=== PATIENT | male | born 1995 | race Caucasian/White ===

== ENCOUNTER 2018-07-12 08:39 | Emergency (ER) | payer OTHER ==
[~2018-07-12] VITALS: Ht 177.8 cm; Wt 158.8 kg
--- OUTSIDE RECORDS SUMMARY | ~2018-07-12 | XMS | Clinical Summary ---
Demographics + + + | Address | [address] [place] [address] | | | [place] [address] | + + + | Home Phone | | + + + | Preferred Language | Unknown | + + + | Marital Status | Single | + + + | Restorationist Affiliation | NON | + + + [...] | + + + + + | MAXI CABRERA | [place] | [place] | | + + + + + Care Team Providers + +------+ + | Care Supervisor Welding Equipment Repairer Name | Role | Phone | + +------+ + PP | Unavailable | + +------+ + Source Comments [facility] is fully live on both [facility] and [facility] InPatient.[facility] Allergies + + + + + + | Active Allergy | Reactions | Severity | Noted | Comments | | | | | Date | | + + + + + + | Sulfa (Sulfonamide | | | 06/11/19 | | | Antibiotics) | | | 04 | | + + + + + + Current Medications Not on file Active Problems Not on file Social History + +-------+ +--------+------+ | Tobacco [...] on file | | + + + Plan of Treatment + + + + + | Health Maintenance | Due Date | Last Done | Comments | + + + + + | Influenza (Flu) | | | | | vaccination (#1) | 8 | | | + + + + + Results Not on filefrom Last 3 Months"
--- OUTSIDE RECORDS SUMMARY | ~2018-07-12 | XMS | Clinical Summary ---
Demographics + + + | Address | [address] [place] [address] | | | [place] [address] | + + + | Home Phone | | + + + | Preferred Language | Unknown | + + + | Marital Status | Single | + + + | Mormon Affiliation | NON | + + + [...] Team Providers + +------+ + | Care Spool Worker Name | Role | Phone | + +------+ + PP | Unavailable | + +------+ + Source Comments [facility]IGAIL is fully live on both [facility] Ambulatory and [facility] InPatient.[facility] Allergies + + + + [...]
[~2018-07-12 08:39] MED LIST: FLOVENT DISKU250 MCG; KEFLEX500 MG PO; MEDROL4 M1 PO; SINGULAIR10 MG PO; VENTOLIN HFA18 GM IH
[2018-07-12] MEDS ORDERED: IPRAT-ALBUT 0.5-3 ML INH (09:30)
[2018-07-12] MEDS ORDERED: PREDNISONE50 MG PO (09:30)
[2018-07-12] MEDS ORDERED: ZYRTEC10 MG PO (09:30)
== END 2018-07-12 10:07 | disposition home or self-care (01) ==
LOC: ED 08:39
DX: J45.901 Unspecified asthma with (acute) exacerbation (principal); Z88.2 Allergy status to sulfonamides; Z88.8 Allergy status to other drugs, medicaments and biological substances; Z79.899 Other long term (current) drug therapy
CPT/HCPCS: 71045; 94640; 99284-25; J7512

== ENCOUNTER 2018-08-05 08:47 | Day surgery (SDC) | payer OTHER ==
[~2018-08-05] VITALS: Ht 177.8 cm; Wt 151.1 kg
[~2018-08-05 08:47] MED LIST changes: +IPRAT-ALBUT 0.5-3 ML INH; +PREDNISONE50 MG PO; +ZYRTEC10 MG PO
[2018-08-05] MEDS ORDERED: METOPROLOL SUCC25 MG PO (09:42)
--- NOTE | 2018-08-05 10:37 | NUR ---
states he freaks out with needles thats why hes here. versed given po. rails up x2. instructed to not get oob with out assist. states ok.
--- NOTE | 2018-08-05 15:01 | NUR ---
08/05/18 1500 Sheets,Seema 1447 PT ARRIVED TO PACU WITH COSTUMED CHARACTER DOING JAW THRUST TO MAINTAIN AIRWAY. SUCTION USED, BRIGHT RED BLOOD SUCTIONED FROM MOUTH. PT CHOCKING ON ORAL AIRWAY, COSTUMED CHARACTER REMOVED ORAL AIRWAY.
--- NOTE | 2018-08-05 17:07 | NUR ---
PT ARRIVED TO MED SURG ROOM 120 FOR CONTINUED MONITORING POST MED ADMINISTRATION, PER AVELINO PRADO PT HAS ALREADY BEEN EDUCATED ON DISCHARGE AND ONLY REQUIRES MONITORING 2 HOURS POST FLUMAZENIL ADMINISTRATION DUE TO DROWSINESS AFTER PO VERSED. LAST DOSE WAS GIVEN AT 1626. PT ALERT AND ORIENTED. VSS. PT DENIES NEEDS/CONCERNS. CALL LIGHT AND H20 WITH NO STRAW IN REACH. PT NOW WATCHING TV.
--- NOTE | 2018-08-05 17:34 | EKG ---
[facility] [address] [facility] [place], [place] [address] Signed Normal sinus rhythm Normal ECG No previous ECGs available Confirmed by ADRIANA BAL DO ([id number]) on 08/05/2018 5:33:54 PM Electronically Signed By: ADRIANA BAL DO 08/05/18 1734 PATIENT NAME: JAMMIE CABRERA Electrocardiogram DATE OF : [birth year] PHYSICIAN: ADRIANA BAL DO REPORT #: [id number] REPORT IS CONFIDENTIAL AND NOT TO BE RELEASED WITHOUT AUTHORIZATION
--- NOTE | 2018-08-05 18:04 | NUR ---
PATIENT RESTING IN BED. VITAL SIGNS DONE. LOW DYASTOLIC BLOOD PRESSURE. RN NOTIFIED. CALL LIGHT WITHIN REACH. NO OTHER NEEDS AT THIS TIME
--- NOTE | 2018-08-05 18:05 | NUR ---
PT RESTING ON LEFT LATERAL SIDE IN BED, PT ALERT AND ORIENTED TO VOICE. PT DENIES PAIN, NAUSEA, OR ANY OTHER SX'S O2 SAT MAINTAINING IN MID TO HIGH 90'S ON RA. CALL LIGHT AND H20 IN REACH.
--- NOTE | 2018-08-05 19:30 | NUR ---
SHIFT REPORT RECIEVED BY SHIKHA IZAGUIRRE AT BEDSIDE. PT AWAKE AND RESTING IN BED, ON RA, RR WNL. NO DISTRESS NOTED, PT APPEARS COMFORTABLE. MOTHER IN ROOM. PER DAYSHIFT AVELINO IZAGUIRRE AND AIR CREW OFFICER REPACK ROOM WORKERAVELINO SOLIS, PT CAN LEAVE AFTER 2030 TO DISCHARGE HOME. EMPTY JELLO CONTAINER AT BEDSIDE, PT DENIES NAUSEA. PT ALSO DENIES PAIN, RECENTLY VOIDED 400 MLS. PT DENIES NEEDS, CALL LIGHT IN REACH.
--- NOTE | 2018-08-05 20:10 | NUR ---
PUDDING PROVIDED PER PT REQUEST. PT DENIES PAIN AND NAUSEA. CALL LIGHT IN REACH.
--- NOTE | 2018-08-05 20:35 | NUR ---
VS COLLECTED AND DOCUMENTED BY GHADA CANAS. VSS, HR 103. PT DENIES CHEST PAIN OR SOB. PT STATES, "I HAVE TACHYCARDIA AND TAKE METOPROLOL DAILY, BUT I DIDN'T TAKE IT TODAY BECAUSE OF SURGERY" I FEEL FINE RIGHT NOW". PT TYPICALLY TAKES 25 MG PO METOPROLOL EXTENDED RELEASE DAILY. PT AND MOTHER ASK IF PT SHOULD TAKE SCHEDULED METOPROLOL AT HOME AFTER DISCHARGE. DISCUSSED PT'S QUESTION WITH LAUNCHING PAD MECHANIC WILL AND KEELER POLYGRAPH OPERATOR KETURAH. PT HR HAS BEEN IN 90'S-LOW 100'S SINCE SURGERY, BP WNL. PER EMAR, IV METOPROLOL WAS DISPENSED IN THE OR FOR TAACHY HR. DISCHARGED HR 103, BP 126/61, MAP 75. DISCUSSED ABOVE INFORMATION WITH KEELER POLYGRAPH OPERATOR AND LAUNCHING PAD MECHANIC. PER KEELER POLYGRAPH OPERATOR, OKAY FOR PT TO TAKE PO METOPROLOL AFTER ARRIVING HOME. PT AND MOTHER DENIES ADDITIONAL QUESTIONS OR CONCERNS. PT HAS MET ALL REQUIREMENTS FOR DISCHARGE. MOTHER PICKED UP PRESCRITIONS EARLIER THIS AFTERNOON. IV CATHETER REMOVED BY GHADA CANAS, TIP INTACT PER OBGYN HOSPITALIST PHYSICIAN. PT DENIES NAUSEA AND TOLERATING FOOD. DENIES PAIN. AMBULATES INDEPENDENTLY AND HAS VOIDED. DISCHARGE INSTRUCTIONS ALREADY GIVEN TO PT'S MOTHER DURING DAYSHIFT.
--- NOTE | 2018-08-05 20:55 | NUR ---
PT TRANSPORTED VIA WHEELCHAIR TO [facility]ONT [facility]ITAL ENTRANCE BY THIS RN. PT AMBULATED INTO PERSONAL VEHICLE DRIVEN BY PT'S MOTHER AND DISCHARGEEDD TO HOME. ALL QUESTIONS ANSWERED. PT AND PT'S MOTHER DENIES ADDITIONAL QUESTIONS OR CONCERNS.
== END 2018-08-05 21:00 | disposition home or self-care (01) ==
LOC: OPS 08:47 → DS 08:52 → OPS 11:30 → MS 17:10 → OPS 21:00
PROVIDERS: Dentist
PROC: 0CQXXZ1 Repair of Lower Tooth, Multiple, External Approach (ICD-10-PCS; 2018-08-05)
PROC: 0CDXXZ0 Extraction of Lower Tooth, Single, External Approach (ICD-10-PCS; principal; 2018-08-05 11:30)
DX: K00.1 Supernumerary teeth (principal); K02.9 Dental caries, unspecified; I10 Essential (primary) hypertension; G89.29 Other chronic pain; K21.9 Gastro-esophageal reflux disease without esophagitis; J45.909 Unspecified asthma, uncomplicated; Z88.2 Allergy status to sulfonamides; Z88.8 Allergy status to other drugs, medicaments and biological substances; Z79.899 Other long term (current) drug therapy
CPT/HCPCS: 93005; 93010; J0330; J1100; J1885; J2405; J2704; J2765; J7120

== ENCOUNTER 2018-09-10 15:44 | Emergency (ER) | payer OTHER ==
[~2018-09-10] VITALS: Ht 177.8 cm; Wt 151.1 kg
[~2018-09-10 15:44] MED LIST changes: +METOPROLOL SUCC25 MG PO
== END 2018-09-10 16:30 | disposition home or self-care (01) ==
LOC: ED 15:44
DX: R07.9 Chest pain, unspecified (principal); Z88.2 Allergy status to sulfonamides; Z88.8 Allergy status to other drugs, medicaments and biological substances; J45.909 Unspecified asthma, uncomplicated; Z79.899 Other long term (current) drug therapy
CPT/HCPCS: 99284-25

== ENCOUNTER 2019-03-17 16:24 | Emergency (ER) | payer OTHER ==
[~2019-03-17] VITALS: Ht 177.8 cm; Wt 158.8 kg
--- OUTSIDE RECORDS SUMMARY | ~2019-03-17 | XMS | Encounter Summary ---
Demographics + + + | Address | [address] [place] [address] | | | [place] [address] | + + + | Home Phone | | + + + | Preferred Language | Unknown | + + + | Marital Status | Single | + + + | Christian Affiliation | NON | + + + | Race | White | + + + | Ethnic Group | Not or | + + + Author + + + | Author | [facility] | + + + | Organization | [facility] | + + + | Address | Unknown | + + + | Phone | Unavailable | + + + Support + + + + + | Name | Relationship | Address | Phone | + + + + + | Eunice Cabrera | JAIME | [place] | | + + + + + Care Team Providers + +------+ + | Care Social Worker Psychiatric Name | Role | Phone | + +------+ + PCP | Unavailable | + +------+ + Encounter Details +--------+ + + + + | Date | Type | Department | Care Team | Description | +--------+ + + + + | 06/11/ | Documentati | Anesthesiology | Unknown . | | | 2003 | on | [address] | | | | | | [place], | | | | | | [place] [address] | | | +--------+ + + + + Social History + +-------+ +--------+------+ | Tobacco Use | Types | Packs/Day | Years | Date | | | | | Used | | + +-------+ +--------+------+ | Never Assessed | | | | | + +-------+ +--------+------+ + + + | Sex Assigned at | Date Recorded | | | | + + + | Not on file | | + + + + + + + | Job Start Date | Occupation | Industry | + + + + | Not on file | Not on file | Not on file | + + + + + + + + | Travel History | Travel Start | Travel End | + + + + + + | No recent travel history available. | + + documented as of this encounter Plan of Treatment Not on filedocumented as of this encounter Procedures + +--------+ + + + | Procedure Name | Priori | Date/Time | Associated Diagnosis | Comments | | | ty | | | | + +--------+ + + + | ANESTHESIA/SEDATION | | 06/12/2003 | | Results for this | | | | 10:33 AM | | procedure are in the | | | | PST | | results section. | + +--------+ + + + documented in this encounter Results ANESTHESIA/SEDATION (06/12/2003 10:33 AM PST) + + + | Narrative | Performed At | + + + | Ordered by an unspecified provider. | | + + + + + | Transcriptions | + + | 06/12/2003 10:33 AM [facility] Anesthesia PostOp Report | | | | Patient: LAZARUS CABRERA Med Rec: [id number] Sex M Bdate: 1995 | | Date/Time Data | | Entered Into [facility] | | Anesth PostOp | | Surgery Date [id number] 06/12/03 10:33 | | Anesthesiologist MITCHEL DAVIS 06/12/03 10:33 | | | + + documented in this encounter Visit Diagnoses Not on filedocumented in this encounter"
--- OUTSIDE RECORDS SUMMARY | ~2019-03-17 | XMS | Encounter Summary ---
Demographics + + + | Address | [address] | | | [place] [address] | + + + | Home Phone | | + + + | Preferred Language | Unknown | + + + | Marital Status | Single | + + + | Alevism Affiliation | NON | + + + | Race | White | + + + | Ethnic Group | Not or | + + + Author + + + | Organization | Unknown | + + + | Address | Unknown | + + + | Phone | Unavailable | + + + Support + + + + + | Name | Relationship | Address | Phone | + + + + + | Eunice Flores | JAIME | [place] | | + + + + + Care Team Providers + +------+ + | Care Social Media Specialist Name | Role | Phone | + +------+ + PCP | Unavailable | + +------+ + Encounter Details +--------+ + + + + | Date | Type | Department | Care Team | Description | +--------+ + + + + | 06/10/ | Results | | [facility], | | | 2003 | Only | | [address] | | | | | | [address] | | | | | | [place] [address] | | | | | | [phone] | | +--------+ + + + + [...] | + +--------+ + + + | MRI SPINE CERVICAL | Routin | 2003 | | Results for this | | WO CONTRAST | e | 12:06 PM | | procedure are in the | | | | PST | | results section. | + +--------+ + + + | BASIC METABOLIC SET | Urgent | 2003 | | Results for this | | (NA, K, CL, TCO2, | | 4:00 AM | | procedure are in the | | BUN, CR, GLU, CA) | | PST | | results section. | + +--------+ + + + | CBC ONLY | Urgent | 2003 | | Results for this | | | | 4:00 AM | | procedure are in the | | | | PST | | results section. | + +--------+ + + + documented in this encounter Results MRI SPINE CERVICAL WO CONTRAST (2003 12:06 PM PST) + + + + + + | Component | Value | Ref Range | Performed | Pathologist | | | | | At | Signature | + + + + + + | MR CERVICAL | Radiologist 1: MISTY, | | | | | SPINE WO | AIDEE BARBOZA M.D.MRI OF THE | | | | | CONTRAST | CERVICAL, THORACIC, AND | | | | | | LUMBAR SPINE: | | | | | | 2003 Dictated | | | | | | 2003 COMPARISON: | | | | | | CT of the cervical | | | | | | spine 06/10/2003. | | | | | | CLINICAL HISTORY: | | | | | | C2-C3 fusion and | | | | | | lumbar spinous process | | | | | | of T1-T2. Rule out | | | | | | diastematomyelia. | | | | | | TECHNIQUE: MRI of the | | | | | | cervical, thoracic, and | | | | | | lumbar spine | | | | | | wasperformed with the | | | | | | following sequences:1. | | | | | | Sagittal and axial | | | | | | T1.2. Sagittal and | | | | | | axial T2. Sagittal | | | | | | STIR. FINDINGS: The | | | | | | spinal cord is normal in | | | | | | size and signals. | | | | | | There is nomass or | | | | | | syrinx. The cerebellar | | | | | | tonsils rest in normal | | | | | | position abovethe | | | | | | foramen magnum. The | | | | | | conus terminates | | | | | | normally at L1-L2. | | | | | | There isno lipoma or | | | | | | tethered cord. The | | | | | | vertebral bodies are | | | | | | normally aligned and | | | | | | maintain normal | | | | | | heightand marrow signal. | | | | | | Please refer to the | | | | | | CT scan for better | | | | | | descriptionof the C2-C3 | | | | | | and cervical-thoracic | | | | | | posterior vertebral body | | | | | | fusion. There is no | | | | | | central canal or neural | | | | | | foraminal stenosis. | | | | | | IMPRESSION: 1. Normal | | | | | | spinal cord. No | | | | | | evidence of | | | | | | diastematomyelia, mass, | | | | | | orsyrinx. 2. Please | | | | | | refer the CT scan for | | | | | | C2-C3 and | | | | | | cervicothoracic | | | | | | junctionposterior | | | | | | fusion. The vertebral | | | | | | bodies are normally | | | | | | aligned. END OF | | | | | | IMPRESSION: | | | | + + + + + + + + | Specimen | + + | | + + + +---------+ + + | Performing | Address | City/State/Zipcode | Phone Number | | Organization | | | | + +---------+ + + | [facility] | | | | | RADIOLOGY | | | | + +---------+ + + CBC ONLY WITH PLATELET (2003 4:00 AM PST) + + + + + + | Component | Value | Ref Range | Performed | Pathologist | | | | | At | Signature | + + + + + + | WHITE CELL | 14.1 (H) | 4.8 - 11.8 K/cu | [facility] | | | COUNT | | mm | DEPARTMENT | | | | | | OF | | | | | | PATHOLOGY | | + + + + + + | RED CELL | 4.18 | 3.70 - 4.90 | [facility] | | | COUNT | | M/cu mm | DEPARTMENT | | | | | | OF | | | | | | PATHOLOGY | | + + + + + + | HEMOGLOBIN | 11.7 | 10.7 - 13.7 | [facility] | | | | | g/dL | DEPARTMENT | | | | | | OF | | | | | | PATHOLOGY | | + + + + + + | HEMATOCRIT | 34.6 | 31.6 - 40.0 % | [facility] | | | | | | DEPARTMENT | | | | | | OF | | | | | | PATHOLOGY | | + + + + + + | MCV | 82.7 | 80.0 - 96.0 fL | [facility] | | | | | | DEPARTMENT | | | | | | OF | | | | | | PATHOLOGY | | + + + + + + | MCH | 27.9 (L) | 28.5 - 32.3 pg | [facility] | | | | | | DEPARTMENT | | | | | | OF | | | | | | PATHOLOGY | | + + + + + + | MCHC | 33.7 | 33.4 - 35.5 | [facility] | | | | | g/dL | DEPARTMENT | | | | | | OF | | | | | | PATHOLOGY | | + + + + + + | RDW | 13.2 | 11.5 - 15.0 % | [facility] | | | | | | DEPARTMENT | | | | | | OF | | | | | | PATHOLOGY | | + + + + + + | PLATELET | 256 | 150 - 420 K/cu | [facility] | | | COUNT | | mm | DEPARTMENT | | | | | | OF | | | | | | PATHOLOGY | | + + + + + + | MPV | 9.3 | 7.4 - 10.4 fL | [facility] | | | | | | DEPARTMENT | | | | | | OF | | | | | | PATHOLOGY | | + + + + + + + + | Specimen | + + | | + + + + + + + | Performing | Address | City/State/Zipcode | Phone Number | | Organization | | | | + + + + + | [facility] | [address] | [place] [address] | | | PATHOLOGY | [address] | | | + + + + + | [facility] | [address] | [place] [address] | | | PATHOLOGY | [address] | | | + + + + + BASIC METABOLIC SET (2003 4:00 AM PST) + +---------+ + + + | Component | Value | Ref Range | Performed | Pathologist | | | | | At | Signature | + +---------+ + + + | GLUCOSE, | 98 | 65 - 110 mg/dL | [facility] | | | PLASMA | | | DEPARTMENT | | | (LAB) | | | OF | | | | | | PATHOLOGY | | + +---------+ + + + | BUN, PLASMA | 9 | 6 - 20 mg/dL | [facility] | | | (LAB) | | | DEPARTMENT | | | | | | OF | | | | | | PATHOLOGY | | + +---------+ + + + | CREATININE | 0.4 | 0.3 - 0.9 mg/dL | [facility] | | | PLASMA | | | DEPARTMENT | | | (LAB) | | | OF | | | | | | PATHOLOGY | | + +---------+ + + + | SODIUM, | 136 | 136 - 145 | [facility] | | | PLASMA | | mmol/L | DEPARTMENT | | | (LAB) | | | OF | | | | | | PATHOLOGY | | + +---------+ + + + | POTASSIUM, | 3.4 (L) | 3.5 - 5.1 | [facility] | | | PLASMA | | mmol/L | DEPARTMENT | | | (LAB) | | | OF | | | | | | PATHOLOGY | | + +---------+ + + + | CHLORIDE, | 106 | 98 - 107 mmol/L | [facility] | | | PLASMA | | | DEPARTMENT | | | (LAB) | | | OF | | | | | | PATHOLOGY | | + +---------+ + + + | TOTAL CO2, | 22 (L) | 23 - 29 mmol/L | [facility] | | | PLASMA | | | DEPARTMENT | | | (LAB) | | | OF | | | | | | PATHOLOGY | | + +---------+ + + + | CALCIUM, | 9.4 | 8.5 - 10.5 | [facility] | | | PLASMA | | mg/dL | DEPARTMENT | | | (LAB) | | | OF | | | | | | PATHOLOGY | | + +---------+ + + + + + | Specimen | + + | | + + + + + + + | Performing | Address | City/State/Zipcode | Phone Number | | Organization | | | | + + + + + | [facility] | [address] | [place] [address] | | | PATHOLOGY | [address] | | | + + + + + | [facility] | [address] | [place] [address] | | | PATHOLOGY | [address] | | | + + + + + documented in this encounter Visit Diagnoses Not on filedocumented in this encounter"
--- OUTSIDE RECORDS SUMMARY | ~2019-03-17 | XMS | Encounter Summary ---
Demographics + + + | Address | [address] | | | [place] [address] | + + + | Home Phone | | + + + | Preferred Language | Unknown | + + + | Marital Status | Single | + + + | Orthodoxy Affiliation | NON | + + + [...] Team Providers + +------+ + | Care Brake Tester Name | Role | Phone | + +------+ + PCP | Unavailable | + +------+ + Encounter Details +--------+ + + + + | Date | Type | Department | Care Team | Description | +--------+ + + + + | 07/26/ | Office | | Note, Outpatient | Progress Note | | 2004 | Visit-Trans | | Clinic | | | | cribed | | | | +--------+ + + + [...] + + documented as of this encounter Progress Notes Interface, Piano Case And Bench Assembler In - 10/18/2004 8:49 PM PDTClinic Date: 07/27/2003 Clinic: Pediatric Neurosurgery Subjective: Lazarus Flores is a 8-year-old boy who fell out of a tree on June 10, 2003, and suffered a right parietal fracture. He was observed here in the [facility] where he had an uncomplicated course. He was discharged home with followup in 2 weeks. Since discharge, Lazarus has been doing quite well. He is back to his usual level of activities. He has had no headache, nausea, vomiting, irritability, or any changes in his neurologic status. His family has no concerns today. Physical Examination General: Lazarus is bright and alert. HEENT: He has a palpable depression in the right parietal area. It is not cosmetically noticeable. Neurologic: His neurological exam remains within normal limits. Lazarus is now free to return to gym class and any other activity except contact sports for 3 months. I reviewed this with his family. He requires no further neurosurgical followup. Charmaine Hernandez M.D. ABENA / COC[facility] [id number] / [id number] / [id number] / Tdocumented in this encounter Plan of Treatment Not on filedocumented as of this encounter Visit Diagnoses Not on filedocumented in this encounter"
--- OUTSIDE RECORDS SUMMARY | ~2019-03-17 | XMS | Encounter Summary ---
Demographics + + + | Address | [address] | | | [place] [address] | + + + | Home Phone | | + + + | Preferred Language | Unknown | + + + | Marital Status | Single | + + + | Uatsdin Affiliation | NON | + + + [...] Team Providers + +------+ + | Care Apigee Developer Name | Role | Phone | + +------+ + PCP | Unavailable | + +------+ + Encounter Details +--------+ + + + + | Date | Type | Department | Care Team | Description | +--------+ + + + + | // | Results | | Other, Faculty | | | 2004 | Only | | [phone] | | +--------+ + + + + [...] | + +--------+ + + + | BLOOD BANK PRODUCT | Routin | 06/10/2003 | | Results for this | | | e | 9:14 PM | | procedure are in the | | | | PST | | results section. | + +--------+ + + + | BLOOD BANK PRODUCT | Routin | 06/10/2003 | | Results for this | | | e | 9:14 PM | | procedure are in the | | | | PST | | results section. | + +--------+ + + + | TYPE AND CROSSMATCH | Urgent | 06/10/2003 | | Results for this | | | | 9:14 PM | | procedure are in the | | | | PST | | results section. | + +--------+ + + + | BASIC METABOLIC SET | Urgent | 06/10/2003 | | Results for this | | (NA, K, CL, TCO2, | | 9:11 PM | | procedure are in the | | BUN, CR, GLU, CA) | | PST | | results section. | + +--------+ + + + | CBC ONLY | Urgent | 06/10/2003 | | Results for this | | | | 9:11 PM | | procedure are in the | | | | PST | | results section. | + +--------+ + + + | COAGULOPATHY PANEL | Urgent | 06/10/2003 | | Results for this | | (INR,APTT,FIBRINOGEN | | 9:11 PM | | procedure are in the | | ) | | PST | | results section. | + +--------+ + + + | PHOSPHORUS, PLASMA | Urgent | 06/10/2003 | | Results for this | | | | 9:11 PM | | procedure are in the | | | | PST | | results section. | + +--------+ + + + | MAGNESIUM, PLASMA | Urgent | 06/10/2003 | | Results for this | | | | 9:11 PM | | procedure are in the | | | | PST | | results section. | + +--------+ + + + documented in this encounter Results BLOOD BANK PRODUCT (06/10/2003 9:14 PM PST) + + + + + + | Component | Value | Ref Range | Performed | Pathologist | | | | | At | Signature | + + + + + + | PRODUCT | PACKED CELLS | | [facility] | | | DESCRIPTION | | | DEPARTMENT | | | | | | OF | | | | | | PATHOLOGY | | + + + + + + | PRODUCT | [id number] | | [facility] | | | UNIT # | | | DEPARTMENT | | | | | | OF | | | | | | PATHOLOGY | | + + + + + + | UNIT ABO | A | | [facility] | | | | | | DEPARTMENT | | | | | | OF | | | | | | PATHOLOGY | | + + + + + + | UNIT RH | POS | | [facility] | | | | | | DEPARTMENT | | | | | | OF | | | | | | PATHOLOGY | | + + + + + + | STATUS OF | Released | | [facility] | | | UNIT | | | DEPARTMENT | | | | | | OF | | | | | | PATHOLOGY | | + + + + + + + + | Specimen | + + | | + + + + + | Narrative | Performed At | + + + | Ordered by UNKNOWN DOCTOR | [facility] | | | DEPARTMENT OF | | | PATHOLOGY | + + + + + + + + | Performing | Address | City/State/Zipcode | Phone Number | | Organization | | | | + + + + + | [facility] DEPARTMENT [facility] | [address] | [place] [address] | | | PATHOLOGY | [address] | | | + + + + + | [facility] DEPARTMENT [facility] | [address] | [place] [address] | | | PATHOLOGY | [address] | | | + + + + + BLOOD BANK PRODUCT (06/10/2003 9:14 PM PST) + + + + + + | Component | Value | Ref Range | Performed | Pathologist | | | | | At | Signature | + + + + + + | PRODUCT | PACKED CELLS | | [facility] | | | DESCRIPTION | | | DEPARTMENT | | | | | | OF | | | | | | PATHOLOGY | | + + + + + + | PRODUCT | [id number] | | [facility] | | | UNIT # | | | DEPARTMENT | | | | | | OF | | | | | | PATHOLOGY | | + + + + + + | UNIT ABO | A | | [facility] | | | | | | DEPARTMENT | | | | | | OF | | | | | | PATHOLOGY | | + + + + + + | UNIT RH | POS | | [facility] | | | | | | DEPARTMENT | | | | | | OF | | | | | | PATHOLOGY | | + + + + + + | STATUS OF | Released | | [facility] | | | UNIT | | | DEPARTMENT | | | | | | OF | | | | | | PATHOLOGY | | + + + + + + + + | Specimen | + + | | + + + + + | Narrative | Performed At | + + + | Ordered by UNKNOWN DOCTOR | [facility] | | | DEPARTMENT OF | | | PATHOLOGY | + + + + + + + + | Performing | Address | City/State/Zipcode | Phone Number | | Organization | | | | + + + + + | [facility] | [address] | [place] [address] | | | PATHOLOGY | [address] | | | + + + + + | [facility] | [address] [place] [address] [address] | [place] [address] | | | PATHOLOGY | [address] | | | + + + + + ANTIBODY SCREEN & CROSSMATCH (06/10/2003 9:14 PM PST) + +-------+ + + + | Component | Value | Ref Range | Performed | Pathologist | | | | | At | Signature | + +-------+ + + + | ABO GROUP | A | | [facility] | | | | | | DEPARTMENT | | | | | | OF | | | | | | PATHOLOGY | | + +-------+ + + + | RH TYPE | POS | | [facility] | | | | | | DEPARTMENT | | | | | | OF | | | | | | PATHOLOGY | | + +-------+ + + + | ANTIBODY | NEG | | [facility] | | | SCREEN | | | DEPARTMENT | | | | | | OF | | | | | | PATHOLOGY | | + +-------+ + + + + + | Specimen | + + | | + + + + + | Narrative | Performed At | + + + | Ordered by UNKNOWN DOCTOR LETTY GARCIA 06/13/03 @ 0700 | [facility] | | | DEPARTMENT OF | | | PATHOLOGY | + + + + + + + + | Performing | Address | City/State/Zipcode | Phone Number | | Organization | | | | + + + + + | [facility] | [address] | [place] [address] | | | PATHOLOGY | [address] | | | + + + + + | [facility] DEPARTMENT OF | [address] | [place] [address] | | | PATHOLOGY | [address] | | | + + + + + CBC ONLY WITH PLATELET (06/10/2003 9:11 PM PST) + + + + + + | Component | Value | Ref Range | Performed | Pathologist | | | | | At | Signature | + + + + + + | WHITE CELL | 18.0 (H) | 4.8 - 11.8 K/cu | [facility] | | | COUNT | | mm | DEPARTMENT | | | | | | OF | | | | | | PATHOLOGY | | + + + + + + | RED CELL | 4.60 | 3.70 - 4.90 | [facility] | | | COUNT | | M/cu mm | DEPARTMENT | | | | | | OF | | | | | | PATHOLOGY | | + + + + + + | HEMOGLOBIN | 13.2 | 10.7 - 13.7 | [facility] | | | | | g/dL | DEPARTMENT | | | | | | OF | | | | | | PATHOLOGY | | + + + + + + | HEMATOCRIT | 37.4 | 31.6 - 40.0 % | [facility] | | | | | | DEPARTMENT | | | | | | OF | | | | | | PATHOLOGY | | + + + + + + | MCV | 81.2 | 80.0 - 96.0 fL | [facility] | | | | | | DEPARTMENT | | | | | | OF | | | | | | PATHOLOGY | | + + + + + + | MCH | 28.6 | 28.5 - 32.3 pg | [facility] | | | | | | DEPARTMENT | | | | | | OF | | | | | | PATHOLOGY | | + + + + + + | MCHC | 35.2 | 33.4 - 35.5 | [facility] | | | | | g/dL | DEPARTMENT | | | | | | OF | | | | | | PATHOLOGY | | + + + + + + | RDW | 13.7 | 11.5 - 15.0 % | [facility] | | | | | | DEPARTMENT | | | | | | OF | | | | | | PATHOLOGY | | + + + + + + | PLATELET | 281 | 150 - 420 K/cu | [facility] | | | COUNT | | mm | DEPARTMENT | | | | | | OF | | | | | | PATHOLOGY | | + + + + + + | MPV | 8.8 | 7.4 - 10.4 fL | [facility] | | | | | | DEPARTMENT | | | | | | OF | | | | | | PATHOLOGY | | + + + + + + + + | Specimen | + + | | + + + + + | Narrative | Performed At | + + + | Ordered by UNKNOWN DOCTOR | [facility] | | | DEPARTMENT OF | | | PATHOLOGY | + + + + + + + + | Performing | Address | City/State/Zipcode | Phone Number | | Organization | | | | + + + + + | [facility] DEPARTMENT OF | [address] | [place] [address] | | | PATHOLOGY | [address] | | | + + + + + | [facility] DEPARTMENT OF | [address] | [place] [address] | | | PATHOLOGY | [address] | | | + + + + + COAGULOPATHY PANEL (06/10/2003 9:11 PM PST) + + + + + + | Component | Value | Ref Range | Performed | Pathologist | | | | | At | Signature | + + + + + + | INR | 0.98Comment: | 0.90 - 1.20 INR | [facility] | | | | PT INR Therapeutic | | DEPARTMENT | | | | ranges for full | | OF | | | | anticoagulation: | | PATHOLOGY | | | | INR for | | | | | | Venous Thromboembolism | | | | | | | | | | | | (2.0-3.0)INR | | | | | | INR for most | | | | | | patients with mech. | | | | | | valves (2.5-3.5)INR | | | | + + + + + + | APTT | 26.8Comment: | 26.0 - 36.0 | [facility] | | | | APTT Therapeutic Range | seconds | DEPARTMENT | | | | | | OF | | | | | | PATHOLOGY | | | | (75-120)sec | | | | | | Heparin levels | | | | | | of 0.35-0.7 U/mL | | | | + + + + + + | FIBRINOGEN | 250 | 200 - 450 mg/dL | [facility] | | | LEVEL | | | DEPARTMENT | | | | | | OF | | | | | | PATHOLOGY | | + + + + + + + + | Specimen | + + | | + + + + + | Narrative | Performed At | + + + | Ordered by UNKNOWN DOCTOR | [facility] | | | DEPARTMENT OF | | | PATHOLOGY | + + + + + + + + | Performing | Address | City/State/Zipcode | Phone Number | | Organization | | | | + + + + + | [facility] DEPARTMENT OF | [address] | [place] [address] | | | PATHOLOGY | [address] | | | + + + + + | [facility] DEPARTMENT OF | [address] | [place] [address] | | | PATHOLOGY | [address] | | | + + + + + BASIC METABOLIC SET (06/10/2003 9:11 PM PST) + +---------+ + + + | Component | Value | Ref Range | Performed | Pathologist | | | | | At | Signature | + +---------+ + + + | GLUCOSE, | 114 (H) | 65 - 110 mg/dL | [facility] | | | PLASMA | | | DEPARTMENT | | | (LAB) | | | OF | | | | | | PATHOLOGY | | + +---------+ + + + | BUN, PLASMA | 15 | 6 - 20 mg/dL | [facility] | | | (LAB) | | | DEPARTMENT | | | | | | OF | | | | | | PATHOLOGY | | + +---------+ + + + | CREATININE | 0.5 | 0.3 - 0.9 mg/dL | [facility] [...] +---------+ + + + | POTASSIUM, | 4.4 | 3.5 - 5.1 | [facility] | | | PLASMA | | mmol/L | DEPARTMENT | | | (LAB) | | | OF | | | | | | PATHOLOGY | | + +---------+ + + + | CHLORIDE, | 101 | 98 - 107 mmol/L | [facility] [...] +---------+ + + + | CALCIUM, | 10.2 | 8.5 - 10.5 | [facility] | | | PLASMA | | mg/dL | DEPARTMENT | | | (LAB) | | | OF | | | | | | PATHOLOGY | | + +---------+ + + + + + | Specimen | + + | | + + + + + | Narrative | Performed At | + + + | Ordered by UNKNOWN DOCTOR | [facility] | | | DEPARTMENT OF | | | PATHOLOGY | + + + + + + + + | Performing | Address | City/State/Zipcode | Phone Number | | Organization | | | | + + + + + | [facility] DEPARTMENT OF | [address] | [place] [address] | | | PATHOLOGY | [address] | | | + + + + + | [facility] DEPARTMENT OF | [address] | [place] [address] | | | PATHOLOGY | [address] | | | + + + + + MAGNESIUM, PLASMA (06/10/2003 9:11 PM PST) + +-------+ + + + | Component | Value | Ref Range | Performed | Pathologist | | | | | At | Signature | + +-------+ + + + | MAGNESIUM,P | 1.8 | 1.8 - 2.5 mg/dL | [facility] | | | LASMA | | | DEPARTMENT | | | | | | OF | | | | | | PATHOLOGY | | + +-------+ + + + + + | Specimen | + + | | + + + + + | Narrative | Performed At | + + + | Ordered by UNKNOWN DOCTOR | [facility] | | | DEPARTMENT OF | | | PATHOLOGY | + + + + + + + + | Performing | Address | City/State/Zipcode | Phone Number | | Organization | | | | + + + + + | [facility] DEPARTMENT OF | [address] | [place] [address] | | | PATHOLOGY | [address] | | | + + + + + | [facility] | [address] | [place] [address] | | | PATHOLOGY | [address] | | | + + + + + PHOSPHORUS, PLASMA (06/10/2003 9:11 PM PST) + +-------+ + + + | Component | Value | Ref Range | Performed | Pathologist | | | | | At | Signature | + +-------+ + + + | PHOSPHORUS, | 4.6 | 3.1 - 6.3 mg/dL | [facility] | | | PLASMA | | | DEPARTMENT | | | (LAB) | | | OF | | | | | | PATHOLOGY | | + +-------+ + + + + + | Specimen | + + | | + + + + + | Narrative | Performed At | + + + | Ordered by UNKNOWN DOCTOR | [facility] | | | DEPARTMENT OF | | | PATHOLOGY | + + + + + + + + | Performing | Address | City/State/Zipcode | Phone Number | | Organization | | | | + + + + + | [facility] | [address] | [place] [address] | | | PATHOLOGY | [address] | | | + + + + + | [facility] | [address] | [place] [address] | | | PATHOLOGY | [address] | | | + + + + + documented in this encounter Visit Diagnoses Not on filedocumented in this encounter"
--- OUTSIDE RECORDS SUMMARY | ~2019-03-17 | XMS | Encounter Summary ---
Demographics + + + | Address | [address] | | | [place] [address] | + + + | Home Phone | | + + + | Preferred Language | Unknown | + + + | Marital Status | Single | + + + | Congregational Affiliation | NON | + + + [...] Team Providers + +------+ + | Care Special Delivery Clerk Name | Role | Phone | + +------+ + PCP | Unavailable | + +------+ + Encounter Details +--------+ + + + + | Date | Type | Department | Care Team | Description | +--------+ + + + + | 06/10/ | Inpatient | | Report, Inpatient | | | 2004 | Progress | | Consultation | | | | Note | | | | +--------+ + + [...] as of this encounter Progress Notes Interface, Wide Area Network Administrator In - 10/18/2004 10:58 PM PDT Referred From and Faxed To: Not dictated. Referred To: Neurosurgery Service Consulting Physician: Amadeo Mc M.D., Ph. D. Consultation Date: 2003 Chief Complaint/Reason for Requested Consultation: Lazarus Flores is a pleasant 7-year-old who fell out of a tree with a very brief loss of consciousness and some swelling in the right parietal region of his scalp. Review of Systems: He had no seizures, change in mental function, cognitive function or state, or neurologic injury. Other review of systems were negative. Past Medical History: Noncontributory. Family History: Noncontributory. Consultation Findings and Recommendations: Neurological Examination: He is awake, alert, cheerful and nontender. He has full voluntary range of motion of the neck in all directions. His spine is nontender. He has no cutaneous stigmata in the midline of any kind of dysraphism. Pupils were equal and reactive to light. Eyes movements are conjugate. Facial movements are symmetric. His tongue protrudes in the midline. There is no pronator drift or dysmetria. Strength is 5/5 in all muscle groups. Sensation is intact. Head CT scan shows a minimally depressed right parietal skull fracture without any pneumocephalus, overlying incision on the examination, underlying brain injury. 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 Impression: Skull fracture with normal neurological examination. Incidental congenital spine malformation. Plan: We will get an MRI of the total spine to make sure there is no associated dysraphism or other problems, given his crossed laminar fusion seen on the CT scan incidentally. This has all been explained to his parents and they agree with . He does not need any further CT scans of the bone. While it will not completely remodel, it is not causing any underlying brain injury or problems, and there is no indication for repeating the scan or elevating the fracture. His mother understands the various options and agrees with the nonsurgical option. He does not need any further scans for this unless there are new complaints or concerns. Amadeo Mc M.D., Ph. D. GALE/daniel A [id number] signed by Interface, Wide Area Network Administrator In at 10/18/2004 10:58 PM PDTdoc umented in this encounter Plan of Treatment Not on filedocumented as of this encounter Visit Diagnoses Not on filedocumented in this encounter"
--- OUTSIDE RECORDS SUMMARY | ~2019-03-17 | XMS | Encounter Summary ---
Demographics + + + | Address | [address] | | | [place] [address] | + + + | Home Phone | | + + + | Preferred Language | Unknown | + + + | Marital Status | Single | + + + | Pentecostal Affiliation | NON | + + + [...] Team Providers + +------+ + | Care Mill Recorder Name | Role | Phone | + +------+ + PCP | Unavailable | + +------+ + Encounter Details +--------+ + + + + | Date | Type | Department | Care Team | Description | +--------+ + + + + | 06/10/ | Results | | Sriram Augustine | | | 2004 | Only | | | | +--------+ + + [...] +--------+ + + + | MRI SPINE THORACIC | Urgent | 2003 | | Results for this | | WO CONTRST | | 12:06 PM | | procedure are in the | | | | PST | | results section. | + +--------+ + + + | MRI SPINE LUMBAR WO | Urgent | 2003 | | Results for this | | CONT | | 12:06 PM | | procedure are in the | | | | PST | | results section. | + +--------+ + + + documented in this encounter Results MRI SPINE THORACIC WO CONTRST (2003 12:06 PM PST) + + + + + + | Component | Value | Ref Range | Performed | Pathologist | | | | | At | Signature | + + + + + + | MR THORACIC | Radiologist 1: MISTY, | | | | | SPINE WO | AIDEE BARBOZA M.D.[facility] | | | | | CONTRST | CERVICAL, THORACIC, AND | | | [...] | | + +---------+ + + | [facility] DEPARTMENT OF | | | | | RADIOLOGY | | | | + +---------+ + + MRI SPINE LUMBAR WO CONT (2003 12:06 PM PST) + + + + + + | Component | Value | Ref Range | Performed | Pathologist | | | | | At | Signature | + + + + + + | MR LUMBAR | Radiologist 1: [facility], | | | | | SPINE WO | AIDEE BARBOZA M.D.[facility] | | | | | CONT | CERVICAL, THORACIC, AND | | | [...] | | + +---------+ + + | [facility] DEPARTMENT OF | | | | | RADIOLOGY | | | | + +---------+ + + documented in this encounter Visit Diagnoses Not on filedocumented in this encounter"
--- OUTSIDE RECORDS SUMMARY | ~2019-03-17 | XMS | Encounter Summary ---
Demographics + + + | Address | [address] | | | [place] [address] | + + + | Home Phone | | + + + | Preferred Language | Unknown | + + + | Marital Status | Single | + + + | Zoroastrian Affiliation | NON | + + + [...] Team Providers + +------+ + | Care Technology Sales Representative Name | Role | Phone | + +------+ + PCP | Unavailable | + +------+ + Encounter Details +--------+ + + + + | Date | Type | Department | Care Team | Description | +--------+ + + + + | 12/25/ | Transcribed | | Dictation, Other | Transcribed | | 1999 | | | | | +--------+ + + [...] as of this encounter Progress Notes Interface, Windows Software Engineer In - 02/28/2006 3:11 AM [facility] and [place] [address] [place], [place] [address] or December 25, 1998 Casa Gatica M.D. [address] [place] [id number] RE: LAZARUS CABRERA MR #: [id number] Dear Dr. Gatica: We had the pleasure of seeing your patient, Lazarus Cabrera, in [facility] today. As you recall, he is a 3-year-old little boy who has had a diagnosis of atopic dermatitis since shortly after . His mother reports that it started on his face and progressed to involve almost his full body at this time in the classic AD distribution. He has a very family strong history of atopic disease, as well as allergies and asthma. Lazarus has been on many different medications and treatments, but none have ever cleared him. He is very allergic to cats and there are cats present both in his home and his daycare. He bathes daily with the use of Dove soap and has not been using any medications for about a month since he ran out of his desonide in plastibase. His mother sometimes gives him some Benadryl at bedtime which she says helps the itching considerably. He also had a course of oral prednisone sometime ago. Lazarus is not having any other health problems at this time, although he is on soy milk because of potential milk allergies. Lazarus is a very active toddler whose face, arms, trunk, legs, and flexor surfaces are extensively involved with erythematous scaly patches, many of which have an impetiginous crust. He shows signs of chronic scratching and lichenification and his skin is very dry throughout. It was our group's impression that Lazarus does have auhwyjec-hm-qychqg atopic dermatitis. He is currently not on any regular regimen, and we explained to the mother that although it is a very lengthy process, if she could follow an intense program for two weeks, she should see an immense improvement in his skin. We recommended that he apply triamcinolone 0.1% ointment b.i.d. to all of his involved areas for a two-week period with particular caution to use around the eyes. He is to then apply a thick coating of Vaseline over the triamcinolone and cover his entire body at least three times a day. She is having to spend quite a bit of money on plastibase which she liked, but we recommended changing to Vaseline as it works just as well and should save her considerable money. We also prescribed cephradine 250 mg/5 cc liquid at 200 mg t.i.d. for five days to clear his impetigo. We asked that they bathe Lazarus at least twice a day in lukewarm water and lubricate him entirely within three minutes of getting out of the bath. She should only use soap to areas that really need it. We also recommend that she continue with the Benadryl at night, and she could certainly add a morning dose if it seems to be helping. Because of the long trip to come see us, we recommended that Lazarus follow up with you in two weeks and assess his progress. The mother does not have a lot of time to devote to his care, but we really emphasized that if she could swing it for at least this short time, he should get to a point where just intensive lubrication should really hold him in an acceptable condition. At the two-week visit if he is significantly improved, we would recommend slowly tapering down the use of the triamcinolone ointment, but keeping up all the other regimens, certainly he is so dry that lubrication really needs to be the cornerstone of his therapy. Thank you for allowing us to share in the care of this young man. Please feel free to call us with any questions or concerns, and should he not respond, we will be happy to see him at any time. It is also easy to get a hold of us on Wednesday afternoons here, if you have other questions. Sincerely, Jessi Cannon M.D. BRYAN / COCO [id number] / [id number] / [id number] / [id number] signed by Interface, Windows Software Engineer In at 02/28/2006 3:11 AM PSTdocume nted in this encounter Plan of Treatment Not on filedocumented as of this encounter Visit Diagnoses Not on filedocumented in this encounter"
--- OUTSIDE RECORDS SUMMARY | ~2019-03-17 | XMS | Encounter Summary ---
Demographics + + + | Address | [address] | | | [place] [address] | + + + | Home Phone | | + + + | Preferred Language | Unknown | + + + | Marital Status | Single | + + + | Catholic Affiliation | NON | + + + [...] Team Providers + +------+ + | Care City Superintendent Of Schools Name | Role | Phone | + +------+ + PCP | Unavailable | + +------+ + Encounter Details +--------+ + + + + | Date | Type | Department | Care Team | Description | +--------+ + + + + | 06/09/ | Results | | Mykel Estevez, | | | 2003 | Only | | [address] | | | | | | [address] | | | | | | [place], [place] | | | | | | [address] | | | | | | [phone] | | | | | | | | +--------+ + [...] | + +--------+ + + + | CT HEAD WO CONTRAST | Urgent | 2003 | | Results for this | | | | 1:00 AM | | procedure are in the | | | | PST | | results section. | + +--------+ + + + | X-RAY CHEST 1 VIEW | Urgent | 06/10/2003 | | Results for this | | | | 10:10 PM | | procedure are in the | | | | PST | | results section. | + +--------+ + + + documented in this encounter Results CT HEAD WO CONTRAST (2003 1:00 AM PST) + + + + + + | Component | Value | Ref Range | Performed | Pathologist | | | | | At | Signature | + + + + + + | CT HEAD WO | Radiologist 1: CAROLANN | | | | | CONTRAST | TERRIE Viramontes | | | | | | Supriya-Radiologist 2: | | | | | | CLIFF STANLEY: CT | | | | | | head without contrast. | | | | | | HISTORY: 8-year-old with | | | | | | trauma. COMPARISON: CT | | | | | | 06/10/2003. TECHNIQUE: | | | | | | 6mm sections with no | | | | | | overlap were obtained | | | | | | from thevertex through | | | | | | the formen magnum. | | | | | | FINDINGS: The chaney and | | | | | | white matter attenuation | | | | | | is maintained.The | | | | | | basilar cisterns and | | | | | | convexity sulci are | | | | | | preserved. There isno | | | | | | ventriculomegaly. No | | | | | | hemorrhage, infarction, | | | | | | or extra axialfluid | | | | | | collections are | | | | | | identified. Again seen | | | | | | is right parietal soft | | | | | | tissue swelling with | | | | | | anassociated comminuted | | | | | | depressed parietal skull | | | | | | fracture. This | | | | | | isunchanged in | | | | | | configuration. There | | | | | | is no associated | | | | | | intracranialfluid | | | | | | collections or | | | | | | contusion. IMPRESSION: | | | | | | 1. Right comminuted | | | | | | depressed parietal skull | | | | | | fracture | | | | | | withoutintracranial | | | | | | hemorrhage. This is | | | | | | unchanged from the prior | | | | | | study. | | | | + + + + + + + + | Specimen | + + | | + + + +---------+ + + | Performing | Address | City/State/Zipcode | Phone Number | | Organization | | | | + +---------+ + + | [facility] DEPARTMENT OF | | | | | RADIOLOGY | | | | + +---------+ + + CHEST 1 VIEW (06/10/2003 10:10 PM PST) + + + + + + | Component | Value | Ref Range | Performed | Pathologist | | | | | At | Signature | + + + + + + | CHEST, 1 | Radiologist 1: VANESSA, | | | | | VIEW | CHAGO ViramontesAP chest | | | | | | radiograph: 06/10/03. | | | | | | Comparison: None. | | | | | | Clinical history: | | | | | | Endotracheal tube | | | | | | placement. Findings: The | | | | | | endotracheal tube tip | | | | | | is at the ermelinda. An | | | | | | enterictube is present | | | | | | with tip in the stomach, | | | | | | just below the | | | | | | lowermargin of the | | | | | | radiograph. Heart size | | | | | | and | | | | | | mediastinalconfiguration | | | | | | are normal. There is | | | | | | mild peribronchial | | | | | | thickeningin the lungs | | | | | | that may reflect airway | | | | | | inflammation, perhaps | | | | | | frombronchitis or | | | | | | aspiration. There does | | | | | | not appear to be | | | | | | floridpulmonary edema at | | | | | | this time. No | | | | | | consolidation is seen. | | | | | | Nopleural effusions or | | | | | | pneumothoraces are | | | | | | identified. No | | | | | | displacedfractures are | | | | | | evident. Impression: 1. | | | | | | Endotracheal tube tip at | | | | | | ermelinda. 2. Mild | | | | | | airwayinflammation. | | | | | | Follow-up may be of | | | | | | use to exclude | | | | | | developingnoncardiogenic | | | | | | edema. | | | | + + + + + + + + | Specimen | + + | | + + + +---------+ + + | Performing | Address | City/State/Zipcode | Phone Number | | Organization | | | | + +---------+ + + | [facility] DEPARTMENT OF | | | | | RADIOLOGY | | | | + +---------+ + + documented in this encounter Visit Diagnoses Not on filedocumented in this encounter"
--- OUTSIDE RECORDS SUMMARY | ~2019-03-17 | XMS | Encounter Summary ---
Demographics + + + | Address | [address] [place] [address] | | | [place] [address] | + + + | Home Phone [...] Author + + + | Author | [facility] | + + + | Organization | [facility] | + + + | Address [...] Team Providers + +------+ + | Care Thermoforming Operator Name | Role | Phone | + +------+ + PCP | Unavailable | + +------+ + Encounter Details +--------+ + + + + | Date | Type | Department | Care Team | Description | +--------+ + + + + | 06/11/ | DELETED | Preoperative | Consult, | ANESTHESIA/SEDATION | | 2003 | TRANSCRIPTI | Medicine Clinic at | Anesthesia [address] | | | | ON | [facility] 4th Floor [address] | | | | | [address] | Road [place], [place] | | | | | Mailcode: CH4S | [address] | | | | | [facility] | | | | | | and Healing, | | | | | | Building 1,4th Floor | | | | | | [facility] [place] | | | | | | [address] | | | | | | [phone] | | | +--------+ + + + [...]
--- OUTSIDE RECORDS SUMMARY | ~2019-03-17 | XMS | Encounter Summary ---
Demographics + + + | Address | [address] | | | [place] [address] | + + + | Home Phone [...] Team Providers + +------+ + | Care Superintendent Pier Name | Role | Phone | + [...] [address] | | | | | | [address] | | | | | | [place], [place] | | | | | | [address] | | | | | | [phone] | | | | | | | [...] | | + +---------+ + + | [facility] DEPARTMENT OF | | | | | RADIOLOGY | | | | + +---------+ + + documented in this encounter Visit Diagnoses Not on filedocumented in this encounter"
--- OUTSIDE RECORDS SUMMARY | ~2019-03-17 | XMS | Encounter Summary ---
Demographics + + + | Address | [address] | | | [place] [address] | + + + | Home Phone [...] Team Providers + +------+ + | Care Agile Scrum Coach Name | Role | Phone | + [...] as of this encounter Progress Notes Interface, Ground Worker In - 10/18/2004 8:49 PM PDTClinic Date: 07/27/2003 Clinic: Pediatric Neurosurgery Subjective: Lazarus Flores is a 8-year-old boy who fell out of a tree on June 10, 2003, and suffered a right parietal fracture. He was observed here in the [facility] where he had an uncomplicated course. He [...] followup. Charmaine Hernandez M.D. ABENA / COCO [id number] / [id number] / [id number] / Tdocumented in this encounter Plan of Treatment Not on filedocumented as of this encounter Visit Diagnoses Not on filedocumented in this encounter"
--- OUTSIDE RECORDS SUMMARY | ~2019-03-17 | XMS | Encounter Summary ---
Demographics + + + | Address | [address] | | | [place] [address] | + + + | Home Phone | | + + + | Preferred Language | Unknown | + + + | Marital Status | Single | + + + | Judaism Affiliation | NON | + + + [...] Team Providers + +------+ + | Care Glass Blowing Instructor Name | Role | Phone | + [...] as of this encounter Progress Notes Interface, Ethyl Blender In - 02/28/2006 3:11 AM [place] [facility] [place] [address] [place], [place] [address] or December 25, 1998 Casa Gatica M.D. [address] [place] [id number] RE: LAZARUS CABRERA MR #: [id number] Dear Dr. Gatica: We had the pleasure [...] our group's impression that Lazarus does have [id number] atopic dermatitis. He is currently not on [...] Sincerely, Jessi Cannon M.D. BRYAN / COCO [id number] / [id number] / [id number] / [id number] signed by Interface, Ethyl Blender In at 02/28/2006 3:11 AM PSTdocume nted in this encounter Plan of Treatment Not on filedocumented as of this encounter Visit Diagnoses Not on filedocumented in this encounter"
--- OUTSIDE RECORDS SUMMARY | ~2019-03-17 | XMS | Encounter Summary ---
Demographics + + + | Address | [address] | | | [place] [address] | + + + | Home Phone | | + + + | Preferred Language | Unknown | + + + | Marital Status | Single | + + + | Faith Affiliation | NON | + + + [...] Team Providers + +------+ + | Care Keyboard Instrument Repairer Name | Role | Phone | [...] [address] | | | | | | [place] [address] | | | | | | [phone] | | +--------+ + + + + [...] | + + + + + | [facility] DEPARTMENT OF | [address] | [place] [address] | | | PATHOLOGY | [address] | | | + + + + + | [facility]MENT OF | [address] | [place] [address] | | | PATHOLOGY | [address] [...] | + + + + + | [facility] DE[facility]MENT OF | [address] [facility] | [place] [address] | | | PATHOLOGY | [address] | | | + + + + + | [facility] DEPARTMENT OF | [address] [facility] | [place] [address] | | | PATHOLOGY | [address] | | | + + + + + documented in this encounter Visit Diagnoses Not on filedocumented in this encounter"
--- OUTSIDE RECORDS SUMMARY | ~2019-03-17 | XMS | Clinical Summary ---
Demographics + + + | Address | [address] [place] [address] | | | [place] [address] | + + + | Home Phone | | + + + | Preferred Language | Unknown | + + + | Marital Status | Single | + + + | Temple Affiliation | NON | + + + [...] Team Providers + +------+ + | Care Food Science Professor Name | Role | Phone | + +------+ + PCP | Unavailable | + +------+ + Source Comments [facility] is fully live on both [facility] Ambulatory and [facility] InPatient.[facility] Allergies + + + + + + | Active Allergy | Reactions | Severity | Noted | Comments | | | | | Date | | + + + + + + | Sulfa (Sulfonamide | | | 06/11/19 | | | Antibiotics) | | | 04 | | + + + + + + Medications Not on file Active Problems Not [...] recent travel history available. | + + Last Filed Vital Signs Not on file Plan of Treatment + + + + + | Health Maintenance | Due Date | Last Done | Comments | + + + + + | Influenza (Flu) | | | | | vaccination (#1) | 9 | | | + + + + + | Pneumococcal | Aged Out | | No longer eligible | | vaccination | | | based on patient's | | | | | age to complete this | | | | | topic | + + + + + Results Not on filefrom Last 3 Months"
--- OUTSIDE RECORDS SUMMARY | ~2019-03-17 | XMS | Encounter Summary ---
Demographics + + + | Address | [address] | | | [place] [address] | + + + | Home Phone | | + + + | Preferred Language | Unknown | + + + | Marital Status | Single | + + + | Hinduism Affiliation | NON | + + + [...] Team Providers + +------+ + | Care Him Assistant Name | Role | Phone | + [...] as of this encounter Progress Notes Interface, Ict Analyst In - 10/18/2004 10:58 PM PDT Referred [...] Amadeo Mc M.D., Ph. D. GALE/daniel A [id number] signed by Interface, Ict Analyst In at 10/18/2004 10:58 PM PDTdoc umented in this encounter Plan of Treatment Not on filedocumented as of this encounter Visit Diagnoses Not on filedocumented in this encounter"
--- OUTSIDE RECORDS SUMMARY | ~2019-03-17 | XMS | Clinical Summary ---
Demographics + + + | Address | [address] [place] [address] | | | [place] [address] | + + + | Home Phone | | + + + | Preferred Language | Unknown | + + + | Marital Status | Single | + + + | Confucianism Affiliation | NON | + + + [...] Team Providers + +------+ + | Care Occupational Medicine Officer Name | Role | Phone | + +------+ + PCP | Unavailable | + +------+ + Source Comments [facility] is fully live on both [facility] Ambulatory and [facility] InPatient.[facility] Allergies + + + + [...]
--- OUTSIDE RECORDS SUMMARY | ~2019-03-17 | XMS | Encounter Summary ---
Demographics + + + | Address | [address] | | | [place] [address] | + + + | Home Phone | | + + + | Preferred Language | Unknown | + + + | Marital Status | Single | + + + | Moravian Affiliation | NON | + + + [...] Team Providers + +------+ + | Care Head Of Data Name | Role | Phone | + +------+ + PCP | Unavailable | + +------+ + Encounter Details +--------+ + + + + | Date | Type | Department | Care Team | Description | +--------+ + + + + | 06/09/ | Results | | Monster Jackson MD | | | 2003 | Only | | [address] | | | | | | [address] | | | | | | [place], [place] | | | | | | [address] | | | | | | [phone] | | | | | | | [...] + +--------+ + + + | CT RECONSTRUCTION | Routin | 06/10/2003 | | Results for this | | SAGITAL | e | 9:40 PM | | procedure are in the | | | | PST | | results section. | + +--------+ + + + | CT SPINE CERVICAL WO | Urgent | 06/10/2003 | | Results for this | | CONTRAST | | 9:40 PM | | procedure are in the | | | | PST | | results section. | + +--------+ + + + | CT HEAD WO CONTRAST | Urgent | 06/10/2003 | | Results for this | | | | 9:40 PM | | procedure are in the | | | | PST | | results section. | + +--------+ + + + documented in this encounter Results CT RECONSTRUCTION SAGITAL (06/10/2003 9:40 PM PST) + + + + + + | Component | Value | Ref Range | Performed | Pathologist | | | | | At | Signature | + + + + + + | CT | Radiologist 1: CAROLANN, | | | | | RECONSTRUCT | TERRIE Viramontes, | | | | | ION SELENA | M.D.-Radiologist 2: | | | | | | TERRIE VUONG, | | | | | | M.D.STUDY:CT of the | | | | | | cervical spine with | | | | | | sagittal and | | | | | | coronalreconstructions. | | | | | | HISTORY:Trauma. | | | | | | COMPARISON:None. | | | | | | TECHNIQUE: 1 mm sections | | | | | | with 0.5 mm overlap | | | | | | were obtained fromthe | | | | | | foramen magnum through | | | | | | the upper thoracic | | | | | | spine. Sagittal | | | | | | andcoronal | | | | | | reconstructions were | | | | | | performed and | | | | | | interpreted. | | | | | | FINDINGS:Cervical spine | | | | | | alignment is maintained. | | | | | | There is noacute | | | | | | fracture. The | | | | | | craniocervical junction | | | | | | is preserved. | | | | | | Theintravertebral disc | | | | | | spaces and facets | | | | | | joints are intact. | | | | | | There isno soft tissue | | | | | | swelling. An | | | | | | endotracheal and | | | | | | nasogastric tube | | | | | | areseen. There is fusion | | | | | | of the vertebral bodies | | | | | | at C2 and C3 with a | | | | | | smallcentral lucent | | | | | | cleft. There is fusion | | | | | | of the posterior | | | | | | elements atthis level. | | | | | | The accessory | | | | | | ossification center of | | | | | | the dens issomewhat | | | | | | small. There is | | | | | | incomplete fusion and | | | | | | the spinousprocess and | | | | | | left lamina at the T1 | | | | | | level. IMPRESSION: 1. | | | | | | No fracture or | | | | | | malalignment. 2. | | | | | | Incidental anomalies | | | | | | at C2-3 and T1 levels. | | | | | | These findings were | | | | | | communicated to the | | | | | | emergency department | | | | | | byDr. Reyes at the time | | | | | | of the completion of | | | | | | the study. | | | | + + [...] | | | + +---------+ + + CT SPINE CERVICAL WO CONTRAST (06/10/2003 9:40 PM PST) + + + + + + | Component | Value | Ref Range | Performed | Pathologist | | | | | At | Signature | + + + + + + | CT CERVICAL | Radiologist 1: CAROLANN, | | | | | SPINE WO | TERRIE Viramontes, | | | | | CONTRAST | M.D.-Radiologist 2: | | | | | | TERRIE VUONG, | | | | | | M.D.STUDY:CT of the | | | | | | cervical spine with | | | | | | sagittal and | | | | | | coronalreconstructions. | | | | | | HISTORY:Trauma. | | | | | | COMPARISON:None. | | | | | | TECHNIQUE: 1 mm sections | | | | | | with 0.5 mm overlap | | | | | | were obtained fromthe | | | | | | foramen magnum through | | | | | | the upper thoracic | | | | | | spine. Sagittal | | | | | | andcoronal | | | | | | reconstructions were | | | | | | performed and | | | | | | interpreted. | | | | | | FINDINGS:Cervical spine | | | | | | alignment is maintained. | | | | | | There is noacute | | | | | | fracture. The | | | | | | craniocervical junction | | | | | | is preserved. | | | | | | Theintravertebral disc | | | | | | spaces and facets | | | | | | joints are intact. | | | | | | There isno soft tissue | | | | | | swelling. An | | | | | | endotracheal and | | | | | | nasogastric tube | | | | | | areseen. There is fusion | | | | | | of the vertebral bodies | | | | | | at C2 and C3 with a | | | | | | smallcentral lucent | | | | | | cleft. There is fusion | | | | | | of the posterior | | | | | | elements atthis level. | | | | | | The accessory | | | | | | ossification center of | | | | | | the dens issomewhat | | | | | | small. There is | | | | | | incomplete fusion and | | | | | | the spinousprocess and | | | | | | left lamina at the T1 | | | | | | level. IMPRESSION: 1. | | | | | | No fracture or | | | | | | malalignment. 2. | | | | | | Incidental anomalies | | | | | | at C2-3 and T1 levels. | | | | | | These findings were | | | | | | communicated to the | | | | | | emergency department | | | | | | byDr. Reyes at the time | | | | | | of the completion of | | | | | | the study. | | | | + + + + + + + + | Specimen | + + | | + + + +---------+ + + | Performing | Address | City/State/Zipcode | Phone Number | | Organization | | | | + +---------+ + + | [facility] DEPARTMENT OF | | | | | RADIOLOGY | | | | + +---------+ + + CT HEAD WO CONTRAST (06/10/2003 9:40 PM PST) + + + + + [...] | | | | | | CLIFF STANLEY:CT | | | | | | head without contrast. | | | | | | HISTORY:8-year-old with | | | | | | trauma. COMPARISON:None. | | | | | | TECHNIQUE: 6mm sections | | | | | | with no overlap were | | | | | | obtained from thevertex | | | | | | through the formen | | | | | | magnum. FINDINGS:The | | | | | | chaney and white matter | | | | | | attenuation is | | | | | | maintained. Thebasilar | | | | | | cisterns and convexity | | | | | | sulci are preserved. | | | | | | There is | | | | | | noventriculomegaly. No | | | | | | hemorrhage, infarction, | | | | | | or extra axial | | | | | | fluidcollections are | | | | | | identified. There is | | | | | | right parietal soft | | | | | | tissue swelling with an | | | | | | associatedcomminuted | | | | | | depressed parietal skull | | | | | | fracture. There is | | | | | | noassociated | | | | | | intracranial fluid | | | | | | collections or | | | | | | contusion. IMPRESSION: | | | | | | 1. Right comminuted | | | | | | depressed parietal skull | | | | | | fracture | | | | | | withoutintracranial | | | | | | hemorrhage. These | | | | | | findings were | | | | | | communicated to the | | | | | | emergency department | | | | | | byDr. Reyes at the time | | | | | | of the completion of | | | | | | the study. | | | | + + [...]
--- OUTSIDE RECORDS SUMMARY | ~2019-03-17 | XMS | Encounter Summary ---
Demographics + + + | Address | [address] | | | [place] [address] | + + + | Home Phone | | + + + | Preferred Language | Unknown | + + + | Marital Status | Single | + + + | Hoahaoism Affiliation | NON | + + + [...] Team Providers + +------+ + | Care Masonry Teacher Name | Role | Phone | + +------+ + PCP | Unavailable | + +------+ + Encounter Details +--------+ + + + + | Date | Type | Department | Care Team | Description | +--------+ + + + + | // | Results | | Other, Faculty | | | 2004 | Only | | [phone] | | +--------+ + + + + [...] + + + + | PRODUCT | [id number] | | [facility] | | | UNIT [...] DEPARTMENT OF | [address] | [place] [address] | | | PATHOLOGY | [address] | | | + + + + + | [facility] DEPARTMENT OF | [address] | [place] [address] | | | PATHOLOGY | [address] [...] + + + + | PRODUCT | [id number] | | [facility] | | | UNIT [...] | + + + + + | [facility] | [address] | [place] [address] | | | PATHOLOGY | [address] | | | + + + + + | [facility] | [address] [place] [address] [address] | [place] [address] | | | PATHOLOGY | [address] [...] DEPARTMENT OF | [address] | [place] [address] | | | PATHOLOGY | [address] | | | + + + + + | [facility] DEPARTMENT OF | [address] | [place] [address] | | | PATHOLOGY | [address] [...] DEPARTMENT OF | [address] | [place] [address] | | | PATHOLOGY | [address] | | | + + + + + | [facility] DEPARTMENT OF | [address] | [place] [address] | | | PATHOLOGY | [address] | | | + + + + + COAGULOPATHY PANEL (06/10/2003 9:11 PM PST) + + + + + + | Component | Value | Ref Range | Performed | Pathologist | | | | | At | Signature | + + + + + + | INR | 0.98Comment: | 0.90 - 1.20 INR | [facility] | | | | PT INR [...] | + + + + + | [facility] DEPARTMENT OF | [address] | [place] [address] | | | PATHOLOGY | [address] | | | + + + + + | [facility] DEPARTMENT OF | [address] | [place] [address] | | | PATHOLOGY | [address] [...] | + + + + + | [facility] DEPARTMENT OF | [address] | [place] [address] | | | PATHOLOGY | [address] | | | + + + + + | [facility] DEPARTMENT OF | [address] | [place] [address] | | | PATHOLOGY | [address] [...] DEPARTMENT OF | [address] | [place] [address] | | | PATHOLOGY | [address] | | | + + + + + | [facility] DEPARTMENT | [address] | [place] [address] | | | PATHOLOGY | [address] | | | + + + + + PHOSPHORUS, PLASMA (06/10/2003 9:11 PM PST) + +-------+ + + + | Component | Value | Ref Range | Performed | Pathologist | | | | | At | Signature | + +-------+ + + + | PHOSPHORUS, | 4.6 | 3.1 - 6.3 mg/dL | [facility] | | | PLASMA | | | [...] OF | [address] | [place] [address] | | | PATHOLOGY | [address] | | | + + + + + | [facility] DEPARTMENT OF | [address] | [place] [address] | | | PATHOLOGY | [address] | | | + + + + + documented in this encounter Visit Diagnoses Not on filedocumented in this encounter"
--- OUTSIDE RECORDS SUMMARY | ~2019-03-17 | XMS | Encounter Summary ---
Demographics + + + | Address | [address] [place] [address] | | | [place] [address] | + + + | Home Phone | | + + + | Preferred Language | Unknown | + + + | Marital Status | Single | + + + | Samaritan Affiliation | NON | + + + | Race | White | + + + | Ethnic Group | Not or | + + + Author + + + | Author | [facility] | + + + | Organization | [facility] | + + + | Address [...] Team Providers + +------+ + | Care Bobbin Winder Tender Name | Role | Phone | + +------+ + PCP | Unavailable | + +------+ + Encounter Details +--------+ + + + + | Date | Type | Department | Care Team | Description | +--------+ + + + + | 06/09/ | ED | [facility] | Report, Emergency | ED Consult | | 2003 | Consult-Tra | MEDICINE | Services | | | | nscribed | | | | +--------+ + + [...]
--- OUTSIDE RECORDS SUMMARY | ~2019-03-17 | XMS | Encounter Summary ---
Demographics + + + | Address | [address] | | | [place] [address] | + + + | Home Phone | | + + + | Preferred Language | Unknown | + + + | Marital Status | Single | + + + | Roman Catholic Affiliation | NON | + + [...] Team Providers + +------+ + | Care Reliability Technologist Name | Role | Phone | + [...] | | + +---------+ + + | [facility] DEPARTMENT OF | | | | [...]
--- OUTSIDE RECORDS SUMMARY | ~2019-03-17 | XMS | Encounter Summary ---
Demographics + + + | Address | [address] [place] [address] | | | [place] [address] | + + + | Home Phone | | + + + | Preferred Language | Unknown | + + + | Marital Status | Single | + + + | Anglican Affiliation | NON | + + + | Race | White | + + + | Ethnic Group | Not or | + + + Author + + + | Author | [facility] | + + + | Organization | [facility] | + + + | Address | Unknown | + + + | Phone | Unavailable | + + + Support + + + + + | Name | Relationship | Address | Phone | + + + + + | Eunice Flores | JAIME | [place] | | + + + + + Care Team Providers + +------+ + | Care Waste Management Specialist Name | Role | Phone | [...] W | | | | ON | [facility] 4th Floor [address] | | | | | [address] | Road [place], [place] | | | | | Mailcode: [id number] | [id number] | | | | | [facility] | | | | | | and Healing, | | | | | | Building [address]4th Floor | | | | | | [facility] [place] | | | | | | [address] | | | | | | [phone] | | | +--------+ + + + [...]
--- OUTSIDE RECORDS SUMMARY | ~2019-03-17 | XMS | Encounter Summary ---
Demographics + + + | Address | [address] [place] [address] | | | [place] [address] | + + + | Home Phone | | + + + | Preferred Language | Unknown | + + + | Marital Status | Single | + + + | Hindu Affiliation | NON | + + + | Race | White | + + + | Ethnic Group | Not or | + + + Author + + + | Author | [facility] | + + + | Organization | [facility] | + + + | Address | Unknown | + + + | Phone | Unavailable | + + + Support + + + + + | Name | Relationship | Address | Phone | + + + + + | Eunice Cabrera | JAIME | [place] | | + + + + + Care Team Providers + +------+ + | Care Mechanical Engineering Intern Name | Role | Phone | + [...] | | | | | [address] [place] [place], | | | | | | [place] [address] | | | +--------+ + + + [...] | + + | 06/12/2003 10:33 AM [facility] Anesthesia PostOp Report | | | | Patient: LAZARUS CABRERA Med Rec: [id number] Sex M Bdate: 1995 | | Date/Time Data | | Entered Into [facility] | | Anesth PostOp | | Surgery Date [id number] 06/12/03 10:33 | | Anesthesiologist MITCHEL DAVIS 06/12/03 10:33 | | | + + documented in this encounter Visit Diagnoses Not on filedocumented in this encounter"
--- OUTSIDE RECORDS SUMMARY | ~2019-03-17 | XMS | Encounter Summary ---
Demographics + + + | Address | [address] | | | [place] [address] | + + + | Home Phone | | + + + | Preferred Language | Unknown | + + + | Marital Status | Single | + + + | Sabianism Affiliation | NON | + + + [...] Team Providers + +------+ + | Care Child Specialist Name | Role | Phone | + +------+ + PCP | Unavailable | + +------+ + Encounter Details +--------+ + + + + | Date | Type | Department | Care Team | Description | +--------+ + + + + | 06/09/ | Results | | Monster Jacksno MD | | | 2003 | Only | | [address] | | | | | | [address] | | | | | | [place], [place] | | | | | | [address] | | | | | | [phone] | | | | | | | [...] | | + +---------+ + + | [facility] DEPARTMENT OF | | | | | [...]
--- OUTSIDE RECORDS SUMMARY | ~2019-03-17 | XMS | Encounter Summary ---
Demographics + + + | Address | [address] [place] [address] | | | [place] [address] | + + + | Home Phone | | + + + | Preferred Language | Unknown | + + + | Marital Status | Single | + + + | Mosque Affiliation | NON | + + + | Race | White | + + + | Ethnic Group | Not or | + + + Author + + + | Author | [facility] | + + + | Organization | [facility] | + + + | [...] Team Providers + +------+ + | Care Production Crew Supervisor Name | Role | Phone | + [...]
[2019-03-17] MEDS ORDERED: VENTOLIN HFA18 GM INH (17:50)
[2019-03-17] MEDS ORDERED: IPRAT-ALBUT 0.5-3 ML INH (17:50)
[2019-03-17] MEDS ORDERED: PREDNISONE20 MG PO (17:50)
== END 2019-03-17 18:01 | disposition home or self-care (01) ==
LOC: ED 16:24
DX: J70.5 Respiratory conditions due to smoke inhalation (principal); J45.901 Unspecified asthma with (acute) exacerbation; Z88.2 Allergy status to sulfonamides; Z88.8 Allergy status to other drugs, medicaments and biological substances; Z79.899 Other long term (current) drug therapy; Z79.51 Long term (current) use of inhaled steroids
CPT/HCPCS: 94640; 99284; J7512

== ENCOUNTER 2019-04-28 11:18 | Emergency (ER) | payer OTHER ==
[~2019-04-28] VITALS: Ht 177.8 cm; Wt 158.8 kg
[~2019-04-28 11:18] MED LIST changes: +PREDNISONE20 MG PO; +VENTOLIN HFA18 GM INH
[2019-04-28] MEDS ORDERED: BENZONATATE100 MG PO (20:12)
[2019-04-28] MEDS ORDERED: MEDROL4 M1 PO (21:23)
== END 2019-04-28 11:34 | disposition home or self-care (01) ==
LOC: ED 11:18
DX: R05 Cough (principal); Z53.20 Procedure and treatment not carried out because of patient's decision for unspecified reasons

== ENCOUNTER 2019-04-28 19:59 | Emergency (ER) | payer OTHER ==
[~2019-04-28] VITALS: Ht 177.8 cm; Wt 158.8 kg
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
[2019-04-28] MEDS ORDERED: BENZONATATE100 MG PO (20:12)
[2019-04-28] MEDS ORDERED: MEDROL4 M1 PO (21:23)
== END 2019-04-28 21:34 | disposition home or self-care (01) ==
LOC: ED 19:59
DX: J45.901 Unspecified asthma with (acute) exacerbation (principal); Z88.8 Allergy status to other drugs, medicaments and biological substances; Z88.2 Allergy status to sulfonamides; Z79.899 Other long term (current) drug therapy
CPT/HCPCS: 71046; 94640; 99284-25; J7512